=== PATIENT | male | born 1980 | race Caucasian/White ===

== ENCOUNTER 2020-02-19 15:49 | Emergency (ER) | payer OTHER ==
[~2020-02-19] VITALS: Ht 188 cm; Wt 81.6 kg
[~2020-02-19 15:49] MED LIST: VISTARIL50 MG PO
[2020-02-19] MEDS ORDERED: PAMELOR75 MG PO (16:08)
[2020-02-19] MEDS ORDERED: CLEOCIN HCL300 MG PO (16:19)
== END 2020-02-19 16:47 | disposition home or self-care (01) ==
LOC: ED 15:49
DX: L02.411 Cutaneous abscess of right axilla (principal); F41.9 Anxiety disorder, unspecified; Z79.899 Other long term (current) drug therapy
CPT/HCPCS: 10060; 99283-25